=== PATIENT | female | born 1995 | race Caucasian/White ===

== ENCOUNTER 2024-10-20 07:34 | Day surgery (SDC) | payer OTHER ==
[2024-10-13 14:28] VITALS: BMI 26.5
[2024-10-20] MEDS ORDERED: BUPIVACAINE HCL/PF 2.5 MG/ML - 30 ML VIAL IJ ONE (07:58)
[2024-10-20] MEDS ORDERED: PROPOFOL 20 ML ONE (08:58)
[2024-10-20] MEDS ORDERED: MIDAZOLAM HCL 2 MG/2 ML SINGLE DOSE VIAL ONE (08:59)
[2024-10-20] MEDS ORDERED: METHYLENE BLUE 50 MG/10 ML AMPUL ONE (10:32)
[2024-10-20] MEDS ORDERED: oxyCODONE HCL 5 MG TABLET PO PRN (14:37)
[2024-10-20 14:38] VITALS: TEMP 97.7
[2024-10-20] MEDS: PROMETHAZINE HCL 25 MG/1 ML VIAL ONE (15:10)
[2024-10-20 15:19] VITALS: RESP 18
[2024-10-20] MEDS ORDERED: PROMETHAZINE HCL 25 MG/1 ML VIAL IVPB PRN (16:03)
[2024-10-20 16:15] VITALS: BP 124/69; PULSE 78
== END 2024-10-20 16:17 | disposition home or self-care (01) ==
LOC: FASU 07:34
PROVIDERS: ATTEND Plastic Surgery
PROC: 0HBV0ZZ Excision of Bilateral Breast, Open Approach (ICD-10-PCS; principal; 2024-10-20 10:38)
DX: N62 Hypertrophy of breast (principal)
CPT/HCPCS: 81025; 88305-TC; 94760; Q9968